=== PATIENT | male | born 1990 | race Caucasian/White ===

== ENCOUNTER 2021-02-06 20:32 | Emergency (ER) | payer OTHER ==
[~2021-02-06 20:32] MED LIST: ASPIRIN EC81 MG PO; BACTRIM DS TAB1 EACH PO; BACTROBAN OINT22 GM EXT; BENTYL 20MG TAB20 MG PO; IBUPROFEN600 MG PO; REGLAN 10 MG TA10 MG PO; ZOFRAN ODT 4 MG4 MG SL
[2021-02-06] MEDS ORDERED: IBUPROFEN600 MG PO (21:32)
== END 2021-02-06 21:46 | disposition home or self-care (01) ==
LOC: ER1 20:32
DX: S93.402A Sprain of unspecified ligament of left ankle, initial encounter (principal); Z88.0 Allergy status to penicillin; W01.0XXA Fall on same level from slipping, tripping and stumbling without subsequent striking against object, initial encounter
CPT/HCPCS: 73610; 73630; 99283

== ENCOUNTER 2021-02-17 23:55 | Emergency (ER) | payer OTHER ==
[2021-02-18 02:26] LABS: HEMOGLOBIN 15.5 gm/dl (14.0-17.5); RED BLOOD COUNT 4.96 M/UL (4.20-5.50); WHITE BLOOD COUNT 6.8 K/UL (4.5-11.0)
[2021-02-18 02:49] LABS: BUN/CREATININE RATIO 18 (0-10)
== END 2021-02-18 05:42 | disposition home or self-care (01) ==
LOC: ER1 23:55
PROVIDERS: Family Medicine
DX: R10.11 Right upper quadrant pain (principal); R07.9 Chest pain, unspecified; Z88.0 Allergy status to penicillin
CPT/HCPCS: 80053; 82550; 82553; 83874; 84484; 85025; 93005; 96374; 99285; J1885

== ENCOUNTER → 2021-02-19 | Outpatient (CLI) | payer OTHER | LOC: US 08:55 | DX: R10.11 Right upper quadrant pain (principal); K76.0 Fatty (change of) liver, not elsewhere classified | CPT/HCPCS: 76705 ==

== ENCOUNTER → 2021-05-10 | Outpatient (CLI) | payer OTHER ==
[~2021-05-10] MED LIST changes: +CLINDAMYCIN HC300 MG PO
== END ==
LOC: NM 07:20
DX: R10.11 Right upper quadrant pain (principal)
CPT/HCPCS: 78226; A9537

== ENCOUNTER → 2021-06-01 | Day surgery (SDC) | payer OTHER ==
[~2021-06-01] VITALS: Ht 175.3 cm; Wt 104.3 kg
== END | disposition home or self-care (01) ==
LOC: OR 07:12
DX: K31.9 Disease of stomach and duodenum, unspecified (principal); K29.70 Gastritis, unspecified, without bleeding; K29.80 Duodenitis without bleeding; Z88.0 Allergy status to penicillin; Z20.822 Contact with and (suspected) exposure to COVID-19; F17.210 Nicotine dependence, cigarettes, uncomplicated
CPT/HCPCS: J2704; J7030; J7120

== ENCOUNTER 2021-06-08 00:42 | Emergency (ER) | payer OTHER ==
[~2021-06-08 00:42] MED LIST changes: -CLINDAMYCIN HC300 MG PO
[2021-06-08 01:40] LABS: HEMOGLOBIN 15.7 gm/dl (14.0-17.5); RED BLOOD COUNT 4.97 M/UL (4.20-5.50); WHITE BLOOD COUNT 8.1 K/UL (4.5-11.0)
[2021-06-08 01:59] LABS: BUN/CREATININE RATIO 12 (0-10)
[2021-06-08] MEDS ORDERED: CLINDAMYCIN HC300 MG PO (05:41)
== END 2021-06-08 05:58 | disposition home or self-care (01) ==
LOC: ER1 00:42
PROVIDERS: Family Medicine; Physician Assistant
DX: S02.40EA Zygomatic fracture, right side, initial encounter for closed fracture (principal); S02.40CA Maxillary fracture, right side, initial encounter for closed fracture; Z88.0 Allergy status to penicillin; Z72.89 Other problems related to lifestyle; V49.40XA Driver injured in collision with unspecified motor vehicles in traffic accident, initial encounter; Y92.410 Unspecified street and highway as the place of occurrence of the external cause; Z23 Encounter for immunization
CPT/HCPCS: 70450; 70486; 71260; 72125; 73080; 80053; 80307; 81001; 85025; 90471; 90715; 99284; G0480; Q9967

== ENCOUNTER 2021-09-21 17:43 | Emergency (ER) | payer OTHER ==
[~2021-09-21 17:43] MED LIST changes: +CLINDAMYCIN HC300 MG PO
[2021-09-21 19:05] LABS: HEMOGLOBIN 16.5 gm/dl (14.0-17.5); RED BLOOD COUNT 5.28 M/UL (4.20-5.50); WHITE BLOOD COUNT 8.6 K/UL (4.5-11.0)
[2021-09-21 19:24] LABS: BUN/CREATININE RATIO 15 (0-10)
[2021-09-21] MEDS ORDERED: BENZONATATE200 MG PO (20:38)
== END 2021-09-21 20:56 | disposition home or self-care (01) ==
LOC: ER1 17:43
PROVIDERS: Physician Assistant
DX: J02.9 Acute pharyngitis, unspecified (principal); Z88.0 Allergy status to penicillin; Z20.822 Contact with and (suspected) exposure to COVID-19
CPT/HCPCS: 0240U; 71045; 80053; 85025; 87081; 87880; 99283

== ENCOUNTER 2021-11-27 16:11 | Emergency (ER) | payer OTHER ==
[~2021-11-27 16:11] MED LIST changes: +BENZONATATE200 MG PO
[2021-11-27 21:26] LABS: HEMOGLOBIN 15.8 gm/dl (14.0-17.5); RED BLOOD COUNT 5.07 M/UL (4.20-5.50); WHITE BLOOD COUNT 8.8 K/UL (4.5-11.0)
[2021-11-28 00:12] LABS: BUN/CREATININE RATIO 19 (0-10)
[2021-11-28] MEDS ORDERED: PREDNISONE 10 M10 MG PO (03:16)
[2021-11-28] MEDS ORDERED: BENZONATATE100 MG PO (03:16)
[2021-11-28] MEDS ORDERED: MUCINEX600 MG PO (03:16)
== END 2021-11-28 03:30 | disposition home or self-care (01) ==
LOC: ER1 16:11 → CDU 11-28 04:00 → ER1 11-28 04:00 → CDU 11-28 04:00
PROVIDERS: Physician Assistant Medical
DX: J06.9 Acute upper respiratory infection, unspecified (principal); E03.9 Hypothyroidism, unspecified; Z20.822 Contact with and (suspected) exposure to COVID-19
CPT/HCPCS: 0240U; 71045; 71046; 80053; 82550; 82553; 83874; 84484; 85025; 93005; 96372; 99284; J1100

== ENCOUNTER 2022-01-24 20:00 | Emergency (ER) | payer OTHER ==
[~2022-01-24 20:00] MED LIST changes: +BENZONATATE100 MG PO; +MUCINEX600 MG PO; +PREDNISONE 10 M10 MG PO
[2022-01-24 22:04] LABS: BUN/CREATININE RATIO 20 (0-10)
[2022-01-24 22:06] LABS: HEMOGLOBIN 15.7 gm/dl (14.0-17.5); RED BLOOD COUNT 5.07 M/UL (4.20-5.50); WHITE BLOOD COUNT 9.4 K/UL (4.5-11.0)
== END 2022-01-25 05:21 | disposition home or self-care (01) ==
LOC: ER1 20:00
PROVIDERS: Physician Assistant Medical
DX: R05.9 Cough, unspecified (principal); R51.9 Headache, unspecified; Z20.822 Contact with and (suspected) exposure to COVID-19; F17.220 Nicotine dependence, chewing tobacco, uncomplicated; Z88.0 Allergy status to penicillin
CPT/HCPCS: 0240U; 71046; 80053; 82550; 82553; 84484; 85025; 85379; 93005; 96374; 96375; 99284; J1200; J1885; J2765

== ENCOUNTER 2022-03-05 12:42 | Emergency (ER) | payer OTHER | END 2022-03-05 12:50 | disposition left against medical advice (07) | LOC: ER1 12:42 | DX: Z53.21 Procedure and treatment not carried out due to patient leaving prior to being seen by health care provider (principal) ==

== ENCOUNTER 2022-06-17 11:17 | Emergency (ER) | payer OTHER ==
[2022-06-17 12:20] LABS: HEMOGLOBIN 14.3 gm/dl (14.0-17.5); RED BLOOD COUNT 4.63 M/UL (4.20-5.50); WHITE BLOOD COUNT 6.7 K/UL (4.5-11.0)
[2022-06-17 12:39] LABS: BUN/CREATININE RATIO 15 (0-10)
[2022-06-17] MEDS ORDERED: CLEOCIN HCL150 MG PO (14:57)
[2022-06-17] MEDS ORDERED: BACTRIM DS TAB1 EACH PO (14:57)
== END 2022-06-17 15:35 | disposition home or self-care (01) ==
LOC: ER1 11:17
PROVIDERS: Student in an Organized Health Care Education/Training Program
DX: L03.116 Cellulitis of left lower limb (principal); Z88.0 Allergy status to penicillin
CPT/HCPCS: 73610; 80053; 83605; 85025; 85652; 86140; 87040; 93971; 96374; 96375; 99284; J3370; J7030